=== PATIENT | male | born 1945 | race Caucasian/White ===

== ENCOUNTER 2017-04-01 12:07 | Emergency (ER) | payer MEDICARE, OTHER, SELFPAY ==
[~2017-04-01] VITALS: Ht 175.3 cm; Wt 74.8 kg
[~2017-04-01 12:07] MED LIST: BREO ELLIPTA 11 EACH INH; CARDURA8 MG PO; CELEXA40 MG PO; FLEXERIL10 MG PO; LISINOPRIL-HCT1 EAC2 PO; MOBIC15 MG PO; MUCINEX DM ER1 EAC1 PO; PRAVACHOL40 M1 PO; SYMBICORT 160-4.6 GM INH; TENORMIN50 MG PO; ZANTAC300 MG PO
== END 2017-04-01 15:15 | disposition short-term general hospital (02) ==
LOC: ER 12:07
DX: R07.89 Other chest pain (principal); R73.9 Hyperglycemia, unspecified; J44.9 Chronic obstructive pulmonary disease, unspecified; F32.9 Major depressive disorder, single episode, unspecified; K21.9 Gastro-esophageal reflux disease without esophagitis; E78.5 Hyperlipidemia, unspecified; I10 Essential (primary) hypertension; F17.210 Nicotine dependence, cigarettes, uncomplicated; Z88.5 Allergy status to narcotic agent; Z88.8 Allergy status to other drugs, medicaments and biological substances; Z79.899 Other long term (current) drug therapy; Z98.890 Other specified postprocedural states
CPT/HCPCS: Q9967